=== PATIENT | male | born 1940 | race Hispanic/Latino ===

== ENCOUNTER 2020-01-30 09:38 | Emergency (ER) | payer OTHER ==
[2020-01-30 12:01] LABS: Absolute Lymphocytes (CBC) 1.4 K/uL (0.7-4.9); Basophils % 0.3 % (0-1.3); Lymphocytes % 16.3 % (15.3-44.8); MPV 10.2 fL (7.6-11.3); RBC Red Blood Cell Count 5.28 M/uL (4.33-5.43)
[2020-01-30 12:10] LABS: Potassium 3.8 mmol/L (3.5-5.1)
--- NOTE | 2020-01-30 12:17 | RAD REPORT ---
EXAM DESCRIPTION: CT - Head Brain Wo Cont - 01/30/2020 12:10 pm CLINICAL HISTORY: Numbness in right hand fingers COMPARISON: No comparisons TECHNIQUE: Axial 5 mm thick images of the head were obtained without IV contrast. All CT scans are performed using dose optimization technique as appropriate and may include automated exposure control or mA/KV adjustment according to patient size. FINDINGS: No intracranial hemorrhage, mass, edema or shift of mid-line structures. No acute infarcti on changes seen. No abnormal extra-axial fluid collections. No cortical edema or sulcal effacement id entifiable. Patient has mild for age atrophy. Ventricles are in proportion. Chronic ischemic changes minimal. Mastoid air cells are clear. Patchy mucosal thickening in the ethmoid air cells. No acute bony findings. IMPRESSION: No acute intracranial finding. Patient has mild for age atrophy and only minimal chronic ischemic change.
--- NOTE | 2020-01-30 12:30 | EDPHYS ---
Physician Documentation [facility] Name: Hailey Soliz Sr Age: 79 yrs Sex: Male : 1940 Arrival Date: 01/30/2020 Time: 09:40 Bed 20 Private MD: ED Physician Rusty Perez HPI: 01/29 18:04 This 79 yrs old Male presents to ER via Wheelchair with complaints of Fever, kdr Numbness. 18:04 The patient presents to the emergency department with paresthesias of the right upper kdr extremity, that is mild, palmar aspect of distal phalanx of right little finger, palmar aspect of middle phalanx of right little finger, palmar aspect of proximal phalanx of right little finger, palmar aspect of distal phalanx of right ring finger, palmar aspect of middle phalanx of right ring finger, palmar aspect of proximal phalanx of right ring finger, palmar aspect of distal phalanx of right middle finger, palmar aspect of middle phalanx of right middle finger and palmar aspect of proximal phalanx of right middle finger. Onset: The symptoms/episode began/occurred gradually, 2 day(s) ago. Context: occurred at home, occurred while the patient was at rest. Associated signs and symptoms: The patient has no apparent associated signs or symptoms. Severity of symptoms: At their worst the symptoms were very mild in the emergency department the symptoms are unchanged. Patient's baseline: Neuro: alert and fully oriented, Motor: no deficits, Ambulation: walks without assistance, Speech: normal, The patient has a previous history of DM/HTN. Current symptoms: paralysis or paresis, of the palmar aspect of distal phalanx of right little finger, palmar aspect of middle phalanx of right little finger, palmar aspect of proximal phalanx of right little finger, palmar aspect of distal phalanx of right ring finger, palmar aspect of middle phalanx of right ring finger, palmar aspect of proximal phalanx of right ring finger, palmar aspect of distal phalanx of right middle finger, palmar aspect of middle phalanx of right middle finger and palmar aspect of proximal phalanx of right middle finger, that is mild. The patient has not experienced similar symptoms in the past. The patient has not recently seen a physician. Historical: - Allergies: 10:04 No Known Allergies; jl7 - Home Meds: 10:06 Glipizide Oral [Active]; Lisinopril Oral [Active]; Lovastatin Oral [Active]; jl7 - PMHx: 10:04 Diabetes - NIDDM; Hyperlipidemia; Hypertension; jl7 - Immunization history:: Adult Immunizations unknown. - Social history:: Smoking status: Patient reports the use of cigarette tobacco products, smokes one-half pack cigarettes per day. ROS: 18:04 Constitutional: Negative for fever, chills, and weight loss, Eyes: Negative for injury, kdr pain, redness, and discharge, ENT: Negative for injury, pain, and discharge, Neck: Negative for injury, pain, and swelling, Cardiovascular: Negative for chest pain, palpitations, and edema, Respiratory: Negative for shortness of breath, cough, wheezing, and pleuritic chest pain, Abdomen/GI: Negative for abdominal pain, nausea, vomiting, diarrhea, and constipation, Back: Negative for injury and pain, : Negative for injury, bleeding, discharge, and swelling, MS/Extremity: Negative for injury and deformity, Skin: Negative for injury, rash, and discoloration, Neuro: Negative for headache, weakness, numbness, tingling, and seizure activity. Psych: Negative for depression, anxiety, suicide ideation, homicidal ideation, and hallucinations, Allergy/Immunology: Negative for hives, rash, and allergies, Endocrine: Negative for neck swelling, polydipsia, polyuria, polyphagia, and marked weight changes, Hematologic/Lymphatic: Negative for swollen nodes, abnormal bleeding, and unusual bruising. 18:04 Neuro: Positive for numbness. Exam: 18:04 Constitutional: This is a well developed, well nourished patient who is awake, alert, kdr and in no acute distress. Head/Face: Normocephalic, atraumatic. Eyes: Pupils equal round and reactive to light, extra-ocular motions intact. Lids and lashes normal. Conjunctiva and sclera are non-icteric and not injected. Cornea within normal limits. Periorbital areas with no swelling, redness, or edema. Neck: Trachea midline, no thyromegaly or masses palpated, and no cervical lymphadenopathy. Supple, full range of motion without nuchal rigidity, or vertebral point tenderness. No Meningismus. Chest/axilla: Normal chest wall appearance and motion. Nontender with no deformity. No lesions are appreciated. Cardiovascular: Regular rate and rhythm with a normal S1 and S2. No gallops, murmurs, or rubs. Normal PMI, no JVD. No pulse deficits. Respiratory: Lungs have equal breath sounds bilaterally, clear to auscultation and percussion. No rales, rhonchi or wheezes noted. No increased work of breathing, no retractions or nasal flaring. Abdomen/GI: Soft, non-tender, with normal bowel sounds. No distension or tympany. No guarding or rebound. No evidence of tenderness throughout. Back: No spinal tenderness. No costovertebral tenderness. Full range of motion. Skin: Warm, dry with normal turgor. Normal color with no rashes, no lesions, and no evidence of cellulitis. MS/ Extremity: Pulses equal, no cyanosis. Neurovascular intact. Full, normal range of motion. Psych: Awake, alert, with orientation to person, place and time. Behavior, mood, and affect are within normal limits. 18:04 Neuro: Sensation: numbness, that is mild. Vital Signs: 09:59 BP 148 / 84; Pulse 85; Resp 19; Temp 98.3; Pulse Ox 88% ; Pain 0/10; jl7 11:53 BP 103 / 82; Pulse 65; Resp 15 S; Pulse Ox 92% on R/A; ca1 12:32 BP 153 / 54; Pulse 79; Resp 15 S; Pulse Ox 94% on R/A; ca1 13:08 BP 141 / 55; Pulse 70; Resp 15 S; Pulse Ox 93% on R/A; ca1 MDM: 12:30 Patient medically screened. kdr 18:04 Data reviewed: vital signs, nurses notes, lab test result(s), radiologic studies. kdr Counseling: I had a detailed discussion with the patient and/or guardian regarding: the historical points, exam findings, and any diagnostic results supporting the discharge/admit diagnosis, lab results, radiology results. Physician consultation:. 01/29 11:39 Order name: CBC with Diff; Complete Time: 12:28 kdr 01/29 11:39 Order name: Chem 7; Complete Time: 12:28 kdr 01/29 11:39 Order name: CT Head Brain wo Cont; Complete Time: 12:28 kdr Administered Medications: No medications were administered Disposition: 01/30/20 12:30 Discharged to Home. Impression: Peripheral Neuropathy - Right hand. - Condition is Stable. - Discharge Instructions: Peripheral Neuropathy. - Prescriptions for Prednisone 20 mg Oral Tablet - take 1 tablet by ORAL route once daily for 5 days; 5 tablet. - Medication Reconciliation Form, Thank You Letter form. - Follow up: Private Physician; When: 2 - 3 days; Reason: If symptoms return, Further diagnostic work-up, Recheck today's complaints, Continuance of care, Re-evaluation by your physician. - Problem is new. - Symptoms are unchanged. Signatures: Dispatcher [employer] EDMS Rusty Perez MD MD kdr Molly Paige RN RN jl7 Veda Cruz RN RN ca1 Corrections: (The following items were deleted from the chart) 13:15 12:30 01/30/2020 12:30 Discharged to Home. Impression: Peripheral Neuropathy - Right ca1 hand. Condition is Stable. Forms are Medication Reconciliation Form, Thank You Letter, Antibiotic Education, Prescription Opioid Use. Follow up: Private Physician; When: 2 - 3 days; Reason: If symptoms return, Further diagnostic work-up, Recheck today's complaints, Continuance of care, Re-evaluation by your physician. Problem is new. Symptoms are unchanged. kdr
--- NOTE | 2020-01-30 12:30 | ER ---
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 I just want to know why my hand feels this way on the right hand, denies any other symptoms at this time. Coronavirus screen: Proceed with normal triage. Patient denies a cough. Patient denies shortness of breath or difficulty breathing. Patient denies measured and/or subjective temperature greater than 100.4F prior to today's visit. Patient denies travel on a cruise ship or to a country the [facility] currently lists as an affected area. Patient denies contact with known and/or suspected case of COVID-19. Ebola Screen: No symptoms or risks identified at this time. Initial Sepsis Screen: Does the patient meet any 2 criteria? No. Patient's initial sepsis screen is negative. Does the patient have a suspected source of infection? No. Patient's initial sepsis screen is negative. Risk Assessment: Do you want to hurt yourself or someone else? Patient reports no desire to harm self or others. Onset of symptoms was January 28, 2020. Care prior to arrival: None. 09:59 Method Of Arrival: Wheelchair jl7 09:59 Acuity: JEANNIE 3 jl7 Triage Assessment: 10:04 General: Appears in no apparent distress. uncomfortable, Behavior is calm, cooperative, jl7 appropriate for age. Pain: Denies pain. Historical: - Allergies: 10:04 No Known Allergies; jl7 - Home Meds: 10:06 Glipizide Oral [Active]; Lisinopril Oral [Active]; Lovastatin Oral [Active]; jl7 - PMHx: 10:04 Diabetes - NIDDM; Hyperlipidemia; Hypertension; jl7 - Immunization history:: Adult Immunizations unknown. - Social history:: Smoking status: Patient reports the use of cigarette tobacco products, smokes one-half pack cigarettes per day. Screenin:10 Abuse screen: Denies threats or abuse. Denies injuries from another. Nutritional bp screening: No deficits noted. Tuberculosis screening: No symptoms or risk factors identified. Fall Risk None identified. Assessment: 10:10 Neuro: Level of Consciousness is awake, alert, obeys commands, Oriented to person, bp place, time, situation, Appropriate for age Dryerman/Woman are weak on right. 11:34 General: Appears in no apparent distress. distressed, comfortable, Behavior is calm, ca1 cooperative, appropriate for age. Neuro: Level of Consciousness is awake, alert, obeys commands, Oriented to person, place, time, situation, Dryerman/Woman are weak on right Moves all extremities. Speech is normal, Facial symmetry appears normal, Pupils are PERRLA, Numbness in on 3rd, 4th and 5th digits of R hand. Cardiovascular: Heart tones S1 S2 present Capillary refill is > 3 seconds Patient's skin is warm and dry. Respiratory: Airway is patent Respiratory effort is even, unlabored, Respiratory pattern is regular, symmetrical, Breath sounds are clear bilaterally. GI: Abdomen is round non-distended, Bowel sounds present X 4 quads. Abd is soft and non tender X 4 quads. : No signs and/or symptoms were reported regarding the genitourinary system. EENT: No signs and/or symptoms were reported regarding the EENT system. Derm: Skin is intact, is healthy with good turgor, Skin is pink, warm \T\ dry. Musculoskeletal: Circulation, motion, and sensation intact. Capillary refill < 3 seconds. 11:35 Reassessment: Dr. Perez at bedside. ca1 12:20 Reassessment: Patient appears in no apparent distress at this time. Patient and/or ca1 family updated on plan of care and expected duration. Pain level reassessed. Patient is alert, oriented x 3, equal unlabored respirations, skin warm/dry/pink. 13:08 Reassessment: Patient appears in no apparent distress at this time. Patient is alert, ca1 oriented x 3, equal unlabored respirations, skin warm/dry/pink. Vital Signs: 09:59 BP 148 / 84; Pulse 85; Resp 19; Temp 98.3; Pulse Ox 88% ; Pain 0/10; jl7 11:53 BP 103 / 82; Pulse 65; Resp 15 S; Pulse Ox 92% on R/A; ca1 12:32 BP 153 / 54; Pulse 79; Resp 15 S; Pulse Ox 94% on R/A; ca1 13:08 BP 141 / 55; Pulse 70; Resp 15 S; Pulse Ox 93% on R/A; ca1 ED Course: 09:40 Patient arrived in ED. ag5 10:04 Rusty Perez MD is Attending Physician. kdr 10:04 Triage completed. jl7 10:04 Arm band placed on right wrist. jl7 10:10 Patient has correct armband on for positive identification. Bed in low position. Call bp light in reach. Side rails up X2. 10:35 Christine Harrington, RN is Primary Nurse. rb1 11:02 Abdelrahman Felton, RN is Primary Nurse. bp 11:34 Primary Nurse role handed off by Abdelrahman Felton, PEE ca1 11:34 Veda Cruz RN is Primary Nurse. ca1 11:45 Inserted saline lock: 20 gauge in right antecubital area, using aseptic technique. sv Blood collected. Flushed right antecubital with 5 ml normal saline. 11:52 No provider procedures requiring assistance completed. ca1 11:[address] Scan. sv 12:11 CT Head Brain wo Cont In Process Unspecified. EDMS 12:17 Awaiting radiology results. sv 13:15 IV discontinued, intact, bleeding controlled, No redness/swelling at site. Pressure ca1 dressing applied. Administered Medications: No medications were administered Outcome: 12:30 Discharge ordered by . kdr 13:15 Discharged to home ambulatory. ca1 13:15 Condition: stable 13:15 Discharge instructions given to patient, Instructed on discharge instructions, follow up and referral plans. medication usage, Demonstrated understanding of instructions, follow-up care, medications, Prescriptions given X 1. 13:15 Patient left the ED. ca1 Signatures: Dispatcher [employer] EDMS Cassie Ruvalcaba RN RN sv Rittger, Kevin, MD MD kdr Christine Harrington, RN RN rb1 Molly Paige RN RN jl7 Abdelrahman Felton RN RN bp Veda Cruz RN RN ca1 Luh Fine ag5
[2020-01-30 13:23] VITALS: TEMP 98.3
[2020-01-30 13:27] VITALS: BP 141/55; O2SAT 93
== END 2020-01-30 13:15 | disposition home or self-care (01) ==
LOC: ER 09:38
DX: G62.9 Polyneuropathy, unspecified (principal); E11.9 Type 2 diabetes mellitus without complications; I10 Essential (primary) hypertension; E78.5 Hyperlipidemia, unspecified; F17.210 Nicotine dependence, cigarettes, uncomplicated
CPT/HCPCS: 36415; 70450; 80048; 85025; 99284